=== PATIENT | female | born 1950 | race Caucasian/White ===

== ENCOUNTER → 2022-03-24 | Day surgery (SDC) | payer OTHER ==
[~2022-03-24] MED LIST: Lidocaine 1% PF 5 ML VIAL ONE; Sodium Bicarbonate 2.5 MEQ/5 ML VIAL ONE
[2022-03-24 09:37] VITALS: BP 142/77; TEMP 98.2
== END ==
LOC: CSHULT 07:23
PROVIDERS: ATTEND Internal Medicine Endocrinology, Diabetes & Metabolism
PROC: 0G9H3ZX Drainage of Right Thyroid Gland Lobe, Percutaneous Approach, Diagnostic (ICD-10-PCS; principal; 2022-03-24)
DX: E04.1 Nontoxic single thyroid nodule (principal); E78.5 Hyperlipidemia, unspecified; Z79.899 Other long term (current) drug therapy
CPT/HCPCS: 38505; 88173; 88305